=== PATIENT | female | born 1990 | race Caucasian/White ===

== ENCOUNTER 2016-10-17 09:21 | Inpatient (IN) | payer OTHER ==
[2016-10-17] VITALS (46 sets, daily range): BP systolic 115–167; BP diastolic 75–100; PULSE 63–88; TEMP 97.5–98
[~2016-10-17] VITALS: Ht 170.2 cm; Wt 86.8 kg
[2016-10-17] MEDS ORDERED: PRENATAL PO (09:51)
[2016-10-17] MEDS ORDERED: ZOLOFT 50MG50 MG PO (09:51)
[2016-10-17 10:57] LABS: HEMATOCRIT 38.4 % (37.0-47.0); HEMOGLOBIN 13.4 g/dl (12.5-16.0); MEAN CELL VOLUME 91 fl (80.0-100.0); MEAN CORPUSCULAR HEMOGLOBIN 32 pg (27.0-31.0); MEAN CORPUSCULAR HGB CONC 35 g/dl (33.0-37.0); MEAN PLATELET VOLUME 11.4 fl (7.4-10.4); PLATELET COUNT 194 K/mm3 (130-400); RED BLOOD COUNT 4.23 M/mm3 (4.10-5.30); REDCELL DISTRIBUTION WIDTH-CV 13.2 % (11.5-14.5)
[2016-10-17 11:01] LABS: ADD PATHOLOGY DIFF REVIEW NO
[2016-10-17 11:38] LABS: BAND 3 % (0-10); EOSINOPHIL 2 % (0-4); NEUTROPHILS 81 % (42.0-75.2); TOTAL CELLS COUNTED 100
[2016-10-17 11:42] LABS: PLATELET ESTIMATE NORMAL (NORMAL)
[2016-10-18] VITALS (82 sets, daily range): BP systolic 94–170; BP diastolic 52–97; PULSE 16–105; TEMP 97.5–98.2
[2016-10-19 02:45] VITALS: BP 122/91; PULSE 74; TEMP 98.2
[2016-10-19 07:00] VITALS: BP 128/68; PULSE 72; TEMP 98.8
[2016-10-19 07:07] LABS: HEMATOCRIT 30.1 % (37.0-47.0); HEMOGLOBIN 10.4 g/dl (12.5-16.0)
[2016-10-19] MEDS ORDERED: IBU600 MG PO (08:55)
[2016-10-19] MEDS ORDERED: PERCOCET 325 MG1 TA2 PO (08:55)
[2016-10-19 15:37] VITALS: BP 130/64; PULSE 62; TEMP 98.1
[2016-10-19 20:30] VITALS: BP 121/78; PULSE 76; TEMP 97.8
[2016-10-20 08:00] VITALS: BP 114/85; PULSE 84; TEMP 97.7
[2016-10-20 16:00] VITALS: BP 130/83; PULSE 72
[2016-10-20 19:25] VITALS: BP 123/82; PULSE 92; TEMP 97.7
[2016-10-21 06:40] VITALS: BP 117/79; PULSE 71; TEMP 97.6
== END 2016-10-21 14:25 | disposition home or self-care (01) | DRG 766 ==
LOC: LDRO 09:21 → LDR 09:53 → OB 09:53
PROVIDERS: Obstetrics & Gynecology
PROC: 10D00Z1 Extraction of Products of Conception, Low, Open Approach (ICD-10-PCS; principal; 2016-10-18)
DX: O42.113 Preterm premature rupture of membranes, onset of labor more than 24 hours following rupture, third trimester (principal); O62.0 Primary inadequate contractions; O99.824 Streptococcus B carrier state complicating childbirth; O43.123 Velamentous insertion of umbilical cord, third trimester; O35.8XX0 Maternal care for other (suspected) fetal abnormality and damage, not applicable or unspecified; Z3A.36 36 weeks gestation of pregnancy; Z37.0 Single live birth
CPT/HCPCS: J0595; J0690; J1885; J2175; J2270; J2370; J2400; J2405; J2540; J2590; J3010; J7120